=== PATIENT | male | born 1995 | race Two or more races ===

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

== ENCOUNTER 2019-11-26 14:49 | Emergency (ER) | payer MEDICAID ==
[~2019-11-26] VITALS: Ht 165.1 cm; Wt 49.0 kg
[2019-11-26 15:59] LABS: Basophils # (auto) 0 uL; Basophils % (auto) 0.1 % (0.0-2.0); Eosinophils # (auto) 0 uL; Hematocrit 58.9 % (41.0-53.0); Hemoglobin 20.1 g/dL (13.5-17.5); Lymphocytes # (auto) 0.6 uL; Lymphocytes % (auto) 3.3 % (10.0-50.0); Mean Corpuscular Hemoglobin 30.8 pg (28.0-32.0); Mean Corpuscular Hgb Conc. 34.2 g/dL (32.0-36.0); Monocytes # (auto) 1.4 uL; Monocytes % (auto) 7.6 % (0.0-12.0); Nucleated Red Blood Cells % 0.1 %; Platelet Count (auto) 281 10^3/uL (140-450); Red Blood Cells 6.55 10^6/uL (4.5-5.90); Red Cell Distribution Width 12.9 % (11.8-14.3); White Blood Cell 17.9 10^3/uL (4.4-10.8)
[2019-11-26 16:17] LABS: Alanine Aminotransferase 20 U/L (16-61); Albumin 5.1 g/dL (3.4-5.0); Amylase 80 U/L (25-115); Anion Gap 15 (5-15); Aspartate Aminotransferase 24 U/L (15-37); BUN/Creatinine Ratio 19.4; Blood Urea Nitrogen 62 mg/dL (7-18); Calcium 10.9 mg/dL (8.5-10.1); Carbon Dioxide 23 mmol/L (21-32); Chloride 90 mmol/L (98-107); GFR African American 32 mL/min; GFR Non-African American 26 mL/min; Glucose 134 mg/dL (74-106); Lipase 118 U/L (73-393); Magnesium 2.5 mg/dL (1.6-2.6); Potassium 3.9 mmol/L (3.5-5.1); Sodium 128 mmol/L (136-145)
[2019-11-26 16:18] LABS: Alkaline Phosphatase 82 U/L (45-117); Bilirubin, Total 1.7 mg/dL (0.2-1.0); Total Protein 9.9 g/dL (6.4-8.2)
[2019-11-26] MEDS ORDERED: SODIUM CHLORIDE 0.9% 1,000 ML IV ONE ×2 (20:09)
[2019-11-26] MEDS ORDERED: ONDANSETRON HCL 4 MG/2 ML VIAL IV ONE (20:15)
[2019-11-26] MEDS ORDERED: IOHEXOL 300 MG/ML 100ML BOTTLE IJ ONE (20:20)
[2019-11-26] MEDS ORDERED: PROMETHAZINE HCL 25 MG/ML 1ML IV ONE (20:45)
[2019-11-26 22:43] LABS: Urine Bacteria FEW /hpf (None Seen); Urine Blood Negative /uL (Negative); Urine Hyaline Cast FEW /lpf (0 - 2); Urine Mucus FEW (None Seen); Urine Specific Gravity 1.024 (1.001-1.035); Urine WBC 35 /hpf (0 - 3)
[2019-11-26 22:51] VITALS: BP 120/72
== END 2019-11-26 23:16 | disposition short-term general hospital (02) ==
LOC: ER 14:54
DX: J98.2 Interstitial emphysema (principal); D72.829 Elevated white blood cell count, unspecified; E86.0 Dehydration
CPT/HCPCS: 36415; 71260; 74176; 80053; 81001; 82150; 83690; 83735; 85025; 96361; 96374; 99285; J2550; J7030; Q9967

== ENCOUNTER 2024-10-30 22:55 | Emergency (ER) | payer MEDICAID | END 2024-10-30 23:37 | disposition left against medical advice (07) | LOC: ER 22:55 | DX: R10.13 Epigastric pain (principal); Z53.21 Procedure and treatment not carried out due to patient leaving prior to being seen by health care provider ==